=== PATIENT | female | born 1960 | race Caucasian/White ===

== ENCOUNTER 2016-12-20 10:17 | Emergency (ER) | payer OTHER ==
[~2016-12-20] VITALS: Ht 177.8 cm; Wt 118.0 kg
[2016-12-20 11:57] LABS: ADD MIUA? YES; BILIRUBIN NEGATIVE; BLOOD SMALL; COLOR YELLOW ((YELLOW)); GLUCOSE (STRIP) >=500; KETONES NEGATIVE; LEUKOCYTES NEGATIVE; NITRITE NEGATIVE; PROTEIN (STRIP) NEGATIVE; SPECIFIC GRAVITY 1.015 (1.000-1.030); UROBILINOGEN 0.2 MG/DL (0.2-1.0)
[2016-12-20 12:01] LABS: BACTERIA NONE SEEN /HPF; EPITHELIAL CELLS RARE /HPF; MUCUS NONE SEEN /LPF; RED BLOOD CELLS 0-5 /HPF (0-5); UCUL ADDED? NO; URIC ACID CRYSTALS 1+ /HPF; WHITE BLOOD CELLS 0-5 /HPF (0-5)
[2016-12-20 12:14] LABS: RED BLOOD COUNT 4.88 M/uL (3.80-5.20); WHITE BLOOD COUNT 8.7 K/uL (4.1-10.2)
[2016-12-20 12:15] LABS: EOSINOPHIL (%) 1.2 % (0-5); EOSINOPHIL COUNT 0.1 K/uL (0-0.3); HEMATOCRIT 39.2 % (36.0-46.0); IMMATURE GRANULOCYTE (%) 0.5 % (0.0-0.7); INSTRUMENT ABS NEUTROPHIL CT 5.4 K/uL; LYMPHOCYTE COUNT 2.6 K/uL (1.0-2.8); MCH 25.6 PG (29.0-34.0); MCHC 31.9 G/DL (30.0-36.0); MCV 80.3 FL (83-99); MEAN PLAT.VOLUME 9.9 uM^3 (9.5-12.4); MONOCYTE (%) 5.5 % (3-12); MONOCYTE COUNT 0.5 K/uL (0-0.8); NEUTROPHIL (%) 62.2 % (45-76); NEUTROPHIL COUNT 5.4 K/uL (1.8-6.4); PLATELET COUNT 204 K/uL (156-360); RBC DIS.WIDTH-CV 14.7 % (11.8-14.6); RBC DIS.WIDTH-SD 42.8 % (39-53)
[2016-12-20 12:24] LABS: CHLORIDE 104 mEq/L (99-109)
[2016-12-20 12:25] LABS: POTASSIUM 3.4 mEq/L (3.7-5.4); SODIUM 140 mEq/L (136-147)
[2016-12-20 12:27] LABS: GLUCOSE 132 mg/dL (70-99)
[2016-12-20 12:28] LABS: ANION GAP 10 MEQ/L (2-14)
[2016-12-20 12:29] LABS: TOTAL BILIRUBIN 0.8 mg/dL (0.0-1.0)
[2016-12-20 12:30] LABS: ALKALINE PHOSPHATASE 151 IU/L (3-129); GFR ESTIMATE (CALCULATED) > 59 mL/min/
[2016-12-20 12:32] LABS: UREA NITROGEN (BUN) 11 mg/dL (9-23)
[2016-12-20 12:34] LABS: LIPASE 17 U/L (1.0-51.0)
[2016-12-20] MEDS ORDERED: ZOFRAN ODT4 MG PO (15:19)
[2016-12-20] MEDS ORDERED: TRAMADOL HCL50 MG PO (15:19)
[2016-12-20 16:26] VITALS: BP 109/53
== END 2016-12-20 16:26 | disposition home or self-care (01) ==
LOC: EME 10:17
PROVIDERS: Emergency Medicine
DX: R11.2 Nausea with vomiting, unspecified (principal); R10.31 Right lower quadrant pain; I25.2 Old myocardial infarction; Z91.040 Latex allergy status; Z88.1 Allergy status to other antibiotic agents
CPT/HCPCS: 74177; 80053; 81003; 83690; 85025; 99281; 99283; J0780; J1200; J2405; J3010; J7030